=== PATIENT | female | born 1985 | race Caucasian/White ===

== ENCOUNTER 2022-12-24 11:38 | Observation (INO) | payer BC, SELFPAY ==
[2022-12-24] VITALS (57 sets, daily range): BP systolic 99–138; BP diastolic 61–115; PULSE 71–111; RESP 16–20; TEMP 36.1–36.5; O2SAT 94–100
--- NOTE | 2022-12-24 11:45 | RT.EKG_ITS ---
APPROVED REPORT Exam: Resting ECG Reason for Exam: upper abd pain Patient Location: E HR:87 bpm ECG Measurements Heart Rate 87 AXIS DC 157 P 58 QRSd 88 QRS 12 QT 363 T 24 QTc 438 Conclusion Sinus rhythm...normal P axis, V-rate 60- 99 Probable left atrial enlargement...P >50mS, <-0.10mV V1
--- NOTE | 2022-12-24 12:07 | ED.GENADUL_ITS ---
Discharge Plan Discharge Details Chief Complaint: Abd Prob Clinical Impression: Superior mesenteric vein thrombosis Primary Care Provider: None,None ED Provider: Rohan Fuentes Home Meds and New Rx's Prescriptions: No Action escitalopram oxalate [Lexapro] 10 mg Tablet 10 mg PO DAILY Medical Decision Making 1240?- 37-year-old female here with abdominal pain and nausea vomiting that started around 6 AM this morning. Patient is quite uncomfortable at this time. She has had fairly persistent vomiting and now dry heaving. Patient tender in her upper abdomen with no peritoneal findings. Patient is hemodynamically stable. Afebrile. Plan for Zofran IV and Pepcid IV. I will give IV fluid bolus. Plan to reassess. Consider biliary disease versus pancreatitis we will check labs. -- Labs reviewed and nondiagnostic. No leukocytosis. 1513 --CT abdomen pelvis was interpreted by radiology: Occlusion of the superior mesenteric vein noted. Plan to initiate anticoagulation with Lovenox 1 mg/kg subcutaneous. [place] [facility] [place] awaiting callback. CT imaging sent for review. HPI General Mode of arrival: ambulatory . Date/Time Provider Initiated Documentation: 12/24/22 11:48 . Limitations to Documentation: no limitations . Information obtained by: patient . HPI Narrative: 37-year-old female presents with chief complaint of abdominal pain. Patient notes she woke up around 6 AM with nausea and abdominal pain. She has had persistent vomiting and dry heaving since that time. Pain is localized to upper abdomen and severe. She has no associated hematemesis, melena or bright red blood per rectum. No chest pain. No fever. Patient denies abdominal surgery in the past. Related Data Home Medications Medication Instructions Recorded Confirmed escitalopram oxalate 10 mg tablet 10 mg PO DAILY 12/24/22 12/24/22 (Lexapro) Allergies Allergy/AdvReac Type Severity Reaction Status Date / Time No Known Allergies Allergy Unverified 12/24/22 16:03 General Stated Complaint: Abd Prob PHILLIP: 3 Review of Systems All systems reviewed & are unremarkable except as noted in HPI and below Constitutional Constitutional: Denies fever(s) Gastrointestinal Gastrointestinal: Reports as per HPI PFSH All Active Problems (Updated 12/24/22 @ 16:09 by Rohan Fuentes MD) Superior mesenteric vein thrombosis (Acute) Social History Smoking risk assessment performed?: No Alcohol Intake: current Alcohol Intake frequency: a few times a month Exam Const General: cooperative and uncomfortable Nutritional Appearance: well nourished Orientation: alert and awake HENWY Mouth: moist mucous membranes Eyes Conjunctivae: normal conjunctivae Sclera: normal sclerae Neck Neck: trachea midline and supple Resp Auscultation: clear to auscultation bilaterally, no rales, no rhonchi and no wheezes Cardio Rate: regular rate and not tachycardic Rhythm: regular rhythm GI Palpation: soft, not firm, no guarding, no masses, not rigid and tender in the epigastrum Skin General skin exam: no rashes or lesions noted Neuro General: patient alert, patient awake and tone normal Extrem General: no edema Course Vital Signs Vital signs: Vital Signs Temperature 36.5 C 12/24/22 11:43 Pulse 88 12/24/22 11:43 Respiratory Rate 20 12/24/22 11:43 Blood Pressure 109/75 12/24/22 11:43 Pulse Oximetry 98 12/24/22 11:43 Temperature 36.5 C 12/24/22 11:43 Temperature Source Oral 12/24/22 11:43 Pulse 88 12/24/22 11:43 Respiratory Rate 20 12/24/22 11:43 Respiratory Effort Normal 12/24/22 11:53 Blood Pressure 109/75 12/24/22 11:43 Blood Pressure Position Sitting 12/24/22 11:43 Pulse Oximetry 98 12/24/22 11:43 Oxygen Delivery Method Room Air 12/24/22 11:43 Oxygen Flow Rate 0 12/24/22 11:43 Pain Level 10 12/24/22 11:43 PAWSS Have you Been Recently Intoxicated or Drunk Within the Last 30 days?: No Have you Ever Experienced Previous Episodes of Alcohol Withdrawal?: No Have you ever Experienced Withdrawal Seizures?: No Have you ever Experienced Delirium Tremens(DT)s?: No Have you ever undergone Alcohol Rehabilitation Treatment (i.e, inpt ot outpatient treatment programs)?: No Have you ever Experienced Blackouts?: No Have you ever Combined Alcohol with other Downers within the last 90 days?: No Have you ever Combined Alcohol with any other Substance of Abuse during the last 90 days?: No Positive Blood Alcohol level on Presentation? [PCS.BAL]: No Evidence of Increased Autonomic Activity (i.e. HR>120, tremor, sweating, agitation, nausea)?: No Result: 0
[2022-12-24] MEDS: Famotidine 20 MG/2 ML VIAL IVP (12:15)
[2022-12-24] MEDS: Ondansetron 4 MG/2 ML VIAL IVP ×2 (12:15→15:49)
[2022-12-24] MEDS: Lactated Ringers 500 ML 1000 ML IV (12:15)
[2022-12-24 12:32] LABS: ALT 18 U/L (14-59); AST 16 U/L (15-37); Albumin 4.3 g/dL (3.4-5.0); Alkaline Phosphatase 69 U/L (46-116); Anion Gap 13.4 mmol/L (3-11); BUN 15 mg/dL (7-18); Bilirubin, Total 0.7 mg/dL (0.2-1.0); CO2 23.6 mmol/L (21.0-32.0); CREATININE 0.7 mg/dL (0.55-1.02); Chloride 102 mmol/L (98-107); Estimated GFR 113.46 (mL/min/1.73m2); Glucose 120 mg/dL (74-106); Lipase 16 U/L (16-77); Potassium 3.7 mmol/L (3.5-5.1); Sodium 139 mmol/L (136-145); Total Protein 7.9 g/dL (6.4-8.2)
[2022-12-24 12:38] LABS: Abs Immature Grans 0.03 10^3/uL (0.0-0.06); Absolute Basophil Count 0.02 10^3/uL (0.0-0.2); Absolute Lymphocyte Count 0.66 10^3/uL (1.2-3.4); Absolute Monocyte Count 0.13 10^3/uL (0.1-0.8); Absolute Neutrophil Count 9.04 10^3/uL (1.2-6.7); Basophils % 0.2; HCT 36.8 % (36.0-46.0); HGB 13.4 g/dL (11.2-15.7); Immature Grans % 0.3; Lymphocytes % 6.7; MCH 33.7 pg (27.0-33.0); MCHC 36.4 % (32.0-36.0); MCV 93 fL (80-95); MPV 9.5 fL (8.0-11.0); Monocytes % 1.3; Neutrophils % 91.5; Platelet Count 219 10^3/uL (130-400); RBC 3.98 10^6/uL (3.93-5.22); RDW 12.2 % (11.7-14.6); RDW-SD 41.9 fL; WBC 9.88 10^3/uL (4.4-10.8)
[2022-12-24] MEDS: HYDROmorphone 2 MG/ML SYR 1 MG IVP ×5 (12:44→22:53)
--- NOTE | 2022-12-24 13:45 | DI.CT_ITS ---
Exam(s) CT ABDOMEN PELVIS W EXAM: CT ABDOMEN PELVIS W CLINICAL HISTORY: abdominal pain, worse upper abd, n/v. TECHNIQUE: Imaging Protocol: Axial computed tomography images with coronal and sagittal reformatted images were created and reviewed CONTRAST MATERIAL: Intravenous: Omnipaque 350 Contrast volume:100 ml Oral: no COMPARISON: No exams were available for comparison FINDINGS: ABDOMEN: Lung Bases: Normal where visualized. Liver: Normal density. No measurable mass. Gallbladder and biliary tract: No radiodense calculus or dilation. Pancreas: Normal density, no abnormal calcifications or inflammatory process. Spleen: Normal. Kidneys: Normal size, contour and axis. No radiodense stones or obstructive uropathy. No suspicious m asses seen. Adrenal glands: No masses seen. Vasculature: Abdominal aorta non-dilated. Celiac axis, SMA and JODI are patent. There is partially occlusive thrombus seen in the main trunk of the superior mesenteric vein extendin g to the confluence with the portal vein. The portal vein appears patent. Splenic vein is patent. t here is a distal branch of the superior mesenteric vein which supplies the right lower quadrant mesen smita which appears occlusive. There is significant stranding in the adjacent mesentery. Soft tissues: Unremarkable. PELVIS: Bladder: No gross wall thickening. No calculi.No focal mass. Bowel: No obstruction. No bowel wall thickening. No pneumatosis. Appendix normal. Peritoneal cavity: No ascites or focal collection. Bones: Unremarkable for age. Reproductive organs: Within normal limits. Lymph nodes: Unremarkable. IMPRESSION:: Superior mesenteric vein thrombosis. No bowel thickening or pneumatosis. Significant right lower quadrant mesenteric stranding. Findings called to Dr. Rohan Fuentes of the emergency department. RADIATION DOSE DELIVERED: 957.38mGy.cm Total DLP DATA REPOSITORY: All CT scans at this facility are submitted to the National Radiology Data Registry (NRDR) Dose Index Registry (DIR) with the [employer] (ACR). RADIATION OPTIMIZATION: All CT scans at this facility use at least one of these dose optimization te chniques: automated exposure control; mA and/or kV adjustment per patient size (includes targeted exa ms where dose is matched to clinical indication); or iterative reconstruction.
[2022-12-24] MEDS: Omnipaque 350 MG/ML 100 ML BTL IJ (14:10)
[2022-12-24] MEDS: Normal Saline Flush 10 ML SYR IVP (14:10)
[2022-12-24] MEDS: Normal Saline - Diluent 50 ML VIAL IJ (14:10)
[2022-12-24 15:50] LABS: Lactate 1.5 mmol/L (0.6-1.4)
[2022-12-24] MEDS: Enoxaparin 80 MG/0.8 ML SYR 70 MG SC (15:58)
--- NOTE | 2022-12-24 16:26 | ED.PROG_ITS ---
Date of service: 12/24/22 Time of Service: 16:26 Medical Decision Making I received signout on this 37-year-old female found to have a mesenteric vein thrombus. She is pending a vascular consult. I spoke [place] Santiago [place] [facility] [place] He reported that the patient did not require tertiary care transfer nor stenting. He agreed with local hospitalization for hydration, serial abdominal exams, a clear liquid diet, and anticoagulation. He also reported that the patient would likely benefit from a GI consultation to elucidate the etiology of her superior mesenteric vein thrombosis. We will reach out to the hospitalist team. We will also touch base with general surgery in lieu of GI. 5:15 PM I spoke with Dr. Nelson from general surgery to make him aware of the patient. He agreed to see the patient tomorrow. I have redosed patient with 1 mg of hydromorphone. I spoke with hospitalist Dr. Coulter who agreed graciously to accept the patient for hospitalization. Sign Out Sign Out Data: Sign Out Comment: Follow-up on vascular surgery consult. Last updated by Rohan Fuentes MD at 12/24/22 16:11 Discharge Plan Discharge Details Chief Complaint: Abd Prob Clinical Impression: Superior mesenteric vein thrombosis Primary Care Provider: None,None ED Provider: Baljeet Hickey Allyn Meds and New Rx's Prescriptions: No Action escitalopram oxalate [Lexapro] 10 mg Tablet 10 mg PO DAILY
[2022-12-24 17:31] LABS: Source Nasal/Nares
[2022-12-24 17:58] LABS: COVID-19 PCR Negative (Negative)
--- NOTE | 2022-12-24 18:03 | NUR.NOTE ---
Nursing Note: Gave report to LANETTE Segura on med\surg. pt will go to room 229 when room is ready, but at this time RN states the room is still being cleaned.
--- NOTE | 2022-12-24 18:26 | SCONE_ITS ---
Date of service: 12/24/22 Time of Service: 18:27 Assessment and Plan Assessment and plan (1) Superior mesenteric vein thrombosis: Status: Acute Assessment and plan: This all seems most consistent with acute superior mesenteric vein thrombosis. Although the etiology of that is not quite clear. I think therapeutic anticoagulation is the appropriate treatment. Symptoms seem mildly improved. She is a little bit of appetite, and her hemodynamics are all certainly reassuring. If she has any increase in her abdominal pain, or intolerance of food, then I would switch over to unfractionated heparin in the case that it would need to be held for the operating room. However, based on the current tr ajectory, I think that is unlikely. History of Present Illness History of Present Illness Chief Complaint: Abdominal pain with superior mesenteric vein thrombosis Narrative: Laura is 37 years old. She woke yesterday morning with atypical abdominal pain. She described it as sharp, stabbing, and radiating throughout her abdomen. She had some mild associated nausea. She tried to induce emesis to relieve her symptoms, but it did not help. She thought it may have been food poisoning at that point. After several hours, with the pain increasing, she decided to come to the emergency department for evaluation. While in the ER, her vital signs were reassuring. She had a very mildly elevated serum lactate at 1.5. Otherwise, most of her labs were within normal limits. She had no leukocytosis. It seems like she was in quite a bit of pain at that point. She had a fair amount of abdominal tenderness as well. She was resuscitated with intravenous fluids, and underwent a CAT scan of the abdomen and pelvis that demonstrated superior mesenteric vein thrombosis. She was treated with low molecular weight heparin and admitted to the hospital. Review of Systems Constitutional Constitutional: Denies body ache(s), Denies difficulty sleeping, Denies fever(s) and Reports poor appetite Eyes Eyes: Reports system reviewed and no additional complaints, except as documented ENT Ears, Nose, Mouth, and Throat: Reports system reviewed and no additional complaints, except as documented Cardiovascular Cardiovascular: Denies chest pain and Denies dyspnea Respiratory Respiratory: Denies chest congestion, Denies cough and Denies dyspnea Gastrointestinal Gastrointestinal: Reports abdominal pain, Denies belching, Denies bloating, Denies change in bowel habits, Reports cramping, Denies diarrhea, Reports nausea and Denies vomiting Genitourinary Genitourinary: Reports system reviewed and no additional complaints, except as documented Musculoskeletal Musculoskeletal: Reports system reviewed and no additional complaints, except as documented Neurologic Neurologic: Reports system reviewed and no additional complaints, except as documented Psychiatric Psychiatric: Reports system reviewed and no additional complaints, except as documented Hematologic/Lymphatic Hematologic/Lymphatic: Denies easy bleeding and Denies easy bruising PFSH All Active Problems (Updated 12/24/22 @ 20:44 by Tran Coulter MD) Dehydration (Acute) Anxiety disorder (Chronic) Nausea & vomiting (Acute) Discharge planning issues (Acute) Tobacco abuse (Acute) Superior mesenteric vein thrombosis (Acute) Medical History (Updated 12/24/22 @ 20:44 by Tran Coulter MD) Panic attacks Surgical History (Updated 12/24/22 @ 20:43 by Tran Coulter MD) Family History (Updated 12/24/22 @ 20:43 by Tran Coulter MD) Maternal Grandmother Diabetes Social History Smoking/Tobacco Use Status: Current-Occasional Smoking risk assessment performed?: Yes Alcohol Intake: current Alcohol Intake frequency: a few times a month Housing: apartment Exam Const General: cooperative and comfortable Orientation: alert, awake and oriented x3 HENMT Head: normal to inspection Eyes General: appearance normal, both eyes and all related structures Neck Neck: normal visual inspection, full ROM and no lymphadenopathy Thyroid: thyroid normal GI Inspection: normal to inspection Palpation: soft, no hernias and tender Percussion: normal to percussion Auscultation: normal bowel sounds Neuro General: patient alert, patient awake and patient oriented x3 Extrem Right lower extremity: no edema Left lower extremity: no edema Results Last Vital Signs Temp 97.7 F 12/24/22 11:43 Pulse 79 12/24/22 17:45 Resp 20 12/24/22 11:43 BP 118/80 12/24/22 17:45 Pulse Ox 96 12/24/22 17:45 Labs 12/24/22 12:10 12/24/22 12:10 Labs: Laboratory Results - last 24 hr 12/24/22 12/24/22 12/24/22 12:10 12:10 12:10 WBC 9.88 RBC 3.98 Hgb 13.4 Hct 36.8 MCV 93 MCH 33.7 H MCHC 36.4 H RDW 12.2 Plt Count 219 MPV 9.5 Immature Gran % 0.3 Neutrophils % 91.5 Lymphocytes % 6.7 Monocytes % 1.3 Eosinophils % 0.0 Basophils % 0.2 Nucleated RBC % 0.0 Absolute Neutrophils 9.04 H Absolute Lymphocytes 0.66 L Absolute Monocytes 0.13 Absolute Eosinophils 0.00 Absolute Basophils 0.02 VBG Lactate Sodium 139 Potassium 3.7 Chloride 102 Carbon Dioxide 23.6 Anion Gap 13.4 H BUN 15 Creatinine 0.7 Est GFR (CKD-EPI 2020) 113.46 Glucose 120 H Calcium 9.0 Total Bilirubin 0.7 AST 16 ALT 18 Alkaline Phosphatase 69 Total Protein 7.9 Albumin 4.3 Lipase Cancelled 16 COVID-19 Source SARS-CoV-2 (PCR) 12/24/22 12/24/22 15:44 17:25 WBC RBC Hgb Hct MCV MCH MCHC RDW Plt Count MPV Immature Gran % Neutrophils % Lymphocytes % Monocytes % Eosinophils % Basophils % Nucleated RBC % Absolute Neutrophils Absolute Lymphocytes Absolute Monocytes Absolute Eosinophils Absolute Basophils VBG Lactate 1.5 H Sodium Potassium Chloride Carbon Dioxide Anion Gap BUN Creatinine Est GFR (CKD-EPI 2020) Glucose Calcium Total Bilirubin AST ALT Alkaline Phosphatase Total Protein Albumin Lipase COVID-19 Source Nasal/Nares SARS-CoV-2 (PCR) Negative Imaging Abdomen CT scan report/results: report reviewed and image reviewed CT scan - pelvis: report reviewed and image reviewed
--- NOTE | 2022-12-24 18:55 | W.PM.HP.N ---
Date of service: 12/24/22 Time of Service: 18:56 Assessment and Plan Assessment and plan (1) Superior mesenteric vein thrombosis: Status: Acute Assessment and plan: Continue anticoagulation. Will discuss with GI re any possible further workup. May require heme follow up. (2) Nausea & vomiting: Status: Acute Assessment and plan: Trial a clear liquid diet (3) Dehydration: Status: Acute Assessment and plan: IVF (4) Anxiety disorder: Status: Chronic Assessment and plan: Continue home diazepam and lexapro. I have written for prn narcan given the fact that the patient will be on IV dilaudid concurrently (5) Tobacco abuse: Status: Acute Assessment and plan: Encourage cessation (6) Discharge planning issues: Status: Acute Assessment and plan: Full code History of Present Illness History of Present Illness Chief Complaint: Abdominal pain/n/v Narrative: Ms Quach is a 37 year old female with PMHx of anxiety d/o w/ panic attacks and occasional tobacco use, who presented to [facility] ED today c/o bilateral upper quandrant abdominal pain and billious n/v since waking up this morning. The pain is excruciating. The symptoms did not respond to pepcid and zofran. CT abdomen/pelvis was obtained and revealed superior mesenteric vein thrombosis with significant right lower quadrant mesenteric stranding. The patient denies knowing if anyone on her mother's side has a hx of blood clots. She does not use control. She had COVID in 2020 but not recently. Case was discussed with [facility] vascular surgery, who recommended anticoagulation, IV hydration, pain control, and a clear liquid diet. No operative intervention was recommended. General surgery was consulted, and a hospitalist admission was requested. Review of Systems All systems reviewed & are unremarkable except as noted in HPI and below PFSH All Active Problems (Updated 12/24/22 @ 20:44 by Tran Coulter MD) Dehydration (Acute) Anxiety disorder (Chronic) Nausea & vomiting (Acute) Discharge planning issues (Acute) Tobacco abuse (Acute) Superior mesenteric vein thrombosis (Acute) Medical History (Updated 12/24/22 @ 20:44 by Tran Coulter MD) Panic attacks Surgical History (Updated 12/24/22 @ 20:43 by Tran Coulter MD) Family History (Updated 12/24/22 @ 20:43 by Tran Coulter MD) Maternal Grandmother Diabetes Social History Smoking/Tobacco Use Status: Current-Occasional Smoking risk assessment performed?: Yes Alcohol Intake: current Alcohol Intake frequency: a few times a month Housing: apartment Meds Allergies and Home Medications Allergies Allergy/AdvReac Type Severity Reaction Status Date / Time No Known Allergies Allergy Unverified 12/24/22 16:03 Home Medications Medication Instructions Recorded Confirmed Type diazepam 5 mg tablet 2.5 mg PO HS PRN PRN 12/24/22 12/24/22 History escitalopram oxalate 10 mg tablet 10 mg PO DAILY 12/24/22 12/24/22 History (Lexapro) multivitamin 1 tab PO DAILY 12/24/22 12/24/22 History Exam Narrative Exam Narrative: General: Pleasant female who is laying on her left side, appears uncomfortable, A&Ox3 Neurological: A&ox3, no focal deficits Psychiatric: Appropriate speech pattern/content Skin: Visible skin intact HEENT: Atraumatic, normocephalic, EOMI, dry MM, clear oropharynx, no submandibular or cervical lymphadenopathy, no goiter or JVD Cardiovascular: RRR, no m/r/g, mildly tachycardic Lungs: CTAB Gastrointestinal: soft, diffusely tender, but especially so in the upper abdomen Genitourinary: deferred Extremities: no edema BLEs, 2+ pedal pulses B Results Imaging Additional studies: CT abdomen/pelvis: ?Superior mesenteric vein thrombosis.? No bowel thickening or pneumatosis.? Significant right lower quadrant mesenteric stranding. EKG: HR 87, NSR, ST/T wave flattening in lead 3, otherwise, no acute ischemia. Labs 12/24/22 12:10 12/24/22 12:10 Labs: Laboratory Results - last 24 hr 12/24/22 12/24/22 12/24/22 12:10 12:10 12:10 WBC 9.88 RBC 3.98 Hgb 13.4 Hct 36.8 MCV 93 MCH 33.7 H MCHC 36.4 H RDW 12.2 Plt Count 219 MPV 9.5 Immature Gran % 0.3 Neutrophils % 91.5 Lymphocytes % 6.7 Monocytes % 1.3 Eosinophils % 0.0 Basophils % 0.2 Nucleated RBC % 0.0 Absolute Neutrophils 9.04 H Absolute Lymphocytes 0.66 L Absolute Monocytes 0.13 Absolute Eosinophils 0.00 Absolute Basophils 0.02 VBG Lactate Sodium 139 Potassium 3.7 Chloride 102 Carbon Dioxide 23.6 Anion Gap 13.4 H BUN 15 Creatinine 0.7 Est GFR (CKD-EPI 2020) 113.46 Glucose 120 H Calcium 9.0 Total Bilirubin 0.7 AST 16 ALT 18 Alkaline Phosphatase 69 Total Protein 7.9 Albumin 4.3 Lipase Cancelled 16 COVID-19 Source SARS-CoV-2 (PCR) 12/24/22 12/24/22 15:44 17:25 WBC RBC Hgb Hct MCV MCH MCHC RDW Plt Count MPV Immature Gran % Neutrophils % Lymphocytes % Monocytes % Eosinophils % Basophils % Nucleated RBC % Absolute Neutrophils Absolute Lymphocytes Absolute Monocytes Absolute Eosinophils Absolute Basophils VBG Lactate 1.5 H Sodium Potassium Chloride Carbon Dioxide Anion Gap BUN Creatinine Est GFR (CKD-EPI 2020) Glucose Calcium Total Bilirubin AST ALT Alkaline Phosphatase Total Protein Albumin Lipase COVID-19 Source Nasal/Nares SARS-CoV-2 (PCR) Negative Last Vital Signs Temp 36.5 C 12/24/22 11:43 Pulse 79 12/24/22 17:45 Resp 20 12/24/22 11:43 BP 118/80 12/24/22 17:45 Pulse Ox 96 12/24/22 17:45 PAWSS Have you Been Recently Intoxicated or Drunk Within the Last 30 days?: No Have you Ever Experienced Previous Episodes of Alcohol Withdrawal?: No Have you ever Experienced Withdrawal Seizures?: No Have you ever Experienced Delirium Tremens(DT)s?: No Have you ever undergone Alcohol Rehabilitation Treatment (i.e, inpt ot outpatient treatment programs)?: No Have you ever Experienced Blackouts?: No Have you ever Combined Alcohol with other Downers within the last 90 days?: No Have you ever Combined Alcohol with any other Substance of Abuse during the last 90 days?: No Positive Blood Alcohol level on Presentation? [PCS.BAL]: No Evidence of Increased Autonomic Activity (i.e. HR>120, tremor, sweating, agitation, nausea)?: No Result: 0 Time Spent Time spent with Patient: 55-74 minutes Time was spent: preparing to see the patient(eg.review tests), obtaining and[facility]or [facility], ordering medications,tests, procedures, referring, communicating with other health managed care nurse, indepentently interpreting results, counseling the patient and care coordination
[2022-12-24] MEDS: Lactated Ringers 1,000 ML 125 ML IV ×2 (19:20→21:45)
[2022-12-24] MEDS: Acetaminophen 325 MG TAB PO (19:47)
[2022-12-25] VITALS (11 sets, daily range): BP systolic 96–119; BP diastolic 60–81; PULSE 65–89; RESP 12–20; TEMP 36.4–37.2; O2SAT 96–100
[2022-12-25] MEDS: HYDROmorphone 2 MG/ML SYR 1 MG IVP ×6 (04:00→23:09)
[2022-12-25] MEDS: Acetaminophen 325 MG TAB PO ×3 (04:13→21:48)
[2022-12-25] MEDS: Enoxaparin 80 MG/0.8 ML SYR 70 MG SC (05:16)
[2022-12-25] MEDS: Lactated Ringers 1,000 ML 125 ML IV ×3 (05:23→20:35)
[2022-12-25 07:05] LABS: Abs Immature Grans 0.03 10^3/uL (0.0-0.06); Absolute Basophil Count 0.02 10^3/uL (0.0-0.2); Absolute Eosinophil Count 0.01 10^3/uL (0.0-0.7); Absolute Lymphocyte Count 1.37 10^3/uL (1.2-3.4); Absolute Monocyte Count 0.58 10^3/uL (0.1-0.8); Absolute Neutrophil Count 8.44 10^3/uL (1.2-6.7); Basophils % 0.2; Eosinophils % 0.1; HCT 34.1 % (36.0-46.0); HGB 12.3 g/dL (11.2-15.7); Immature Grans % 0.3; Lymphocytes % 13.1; MCHC 36.1 % (32.0-36.0); MCV 94 fL (80-95); MPV 9.6 fL (8.0-11.0); Monocytes % 5.6; Neutrophils % 80.7; Platelet Count 190 10^3/uL (130-400); RBC 3.62 10^6/uL (3.93-5.22); RDW 12.3 % (11.7-14.6); RDW-SD 42.8 fL; WBC 10.45 10^3/uL (4.4-10.8)
[2022-12-25 07:30] LABS: Anion Gap 7.5 mmol/L (3-11); BUN 9 mg/dL (7-18); CO2 28.5 mmol/L (21.0-32.0); CREATININE 0.7 mg/dL (0.55-1.02); Calcium 8.5 mg/dL (8.5-10.1); Chloride 103 mmol/L (98-107); Estimated GFR 113.46 (mL/min/1.73m2); Glucose 82 mg/dL (74-106); Magnesium 1.9 mg/dL (1.8-2.4); Potassium 3.1 mmol/L (3.5-5.1); Sodium 139 mmol/L (136-145)
[2022-12-25] MEDS: Escitalopram 10 MG TAB PO (07:50)
[2022-12-25] MEDS: Multivitamin TAB 1 TAB PO (07:50)
[2022-12-25 08:46] LABS: Lactate 0.6 mmol/L (0.6-1.4)
[2022-12-25] MEDS: POTASSIUM CHLORIDE 20 MEQ/100 ML BAG 50 MEQ IVPB ×3 (09:29→14:31)
--- NOTE | 2022-12-25 15:01 | PDOC.CMIN ---
Date of service: 12/25/22 Time of Service: 15:01 Care Management Initial Assmt Initial Assessment REASON FOR HOSPITALIZATION:: Superior mesenteric vein thrombosis PREVIOUS FUNCTIONAL STATUS/SOCIAL/FAMILY SUPPORTS:: Resides in [place] with significant other, B[place]io. Independent at baseline in the community. CURRENT FUNCTIONAL STATUS:: Remains inpatient, pain management ongoing; workup today. ADVANCE DIRECTIVES:: None on file. Has patient been provided with info about the portal/API?: No Did the patient sign up for the portal?: No CODE STATUS:: Full Code INSURANCE COVERAGE / FINANCIAL ISSUES:: BC/BS Out of State PRIMARY CARE PHYSICIAN:: T-Doc to be offered POTENTIAL DISCHARGE NEEDS:: T-doc coordination if patient wishes, follow up appointments. PATIENT/FAMILY EDUCATION NEEDS:: Review discharge instructions, discuss Ask Me Three. ANTICIPATED BARRIERS TO DISCHARGE:: None identified. TRANSPORTATION:: Via private vehicle with significant other. PLAN:: Case was discussed [place] [facility] [place], who recommended anticoagulation, IV hydration, pain control, and a clear liquid diet. No operative intervention was recommended. General surgery was consulted, and a hospitalist admission was requested. PFSH All Active Problems (Updated 12/25/22 @ 20:47 by Tran Coulter MD) Dehydration (Acute) Anxiety disorder (Chronic) Discharge planning issues (Acute) Tobacco abuse (Acute) Superior mesenteric vein thrombosis (Acute) Medical History (Updated 12/25/22 @ 20:47 by Tran Coulter MD) Panic attacks Surgical History (Updated 12/24/22 @ 20:43 by Tran Coulter MD) Family History (Updated 12/24/22 @ 20:43 by Tran Coulter MD) Maternal Grandmother Diabetes Social History Smoking/Tobacco Use Status: Current-Occasional Smoking risk assessment performed?: Yes Alcohol Intake: current Alcohol Intake frequency: a few times a month Housing: apartment
[2022-12-25] MEDS: Enoxaparin 80 MG/0.8 ML SYR SC (17:04)
[2022-12-25] MEDS: Normal Saline Flush 10 ML SYR IVP (17:58)
--- NOTE | 2022-12-25 19:53 | W.PM.PROGNOT ---
Date of Service Date of service: 12/25/22 Time of Service: 16:30 Assessment and Plan Assessment and plan (1) Tobacco abuse: Status: Acute (2) Superior mesenteric vein thrombosis: Status: Acute Assessment and plan: Pain improving on anti-coagulants. (lovenox). . Probably transition to DOACs in am cont pain management Miralax Heme work-up for hyper-coag d/o. d/w Dr. Coulter Subjective Subjective Interval history since last seen: Pt is doing better. no headaches. No CP or SOB. no productive cough. no dysuria. no leg pain or swelling. Her pain is better today. She is still requiring narcotics to control it. She is tolerating liquids. She feels better seince she was started on blood thinners. She is not on hormonal BC. No family his of blood clots/thrombophillia. She denies trauma. No signs of malignancy on CT. No cirrhosis/portal HTN. Exam Const Other: abdom: RUQ tenderness. No peritonitis. Objective Last Vital Signs Temp 37.1 C 12/25/22 19:39 Pulse 65 12/25/22 19:39 Resp 16 12/25/22 19:39 BP 110/77 12/25/22 19:39 Pulse Ox 100 12/25/22 19:39 Laboratory Results - last 24 hr 12/25/22 12/25/22 12/25/22 06:39 06:39 08:36 WBC 10.45 RBC 3.62 L Hgb 12.3 Hct 34.1 L MCV 94 MCH 34.0 H MCHC 36.1 H RDW 12.3 Plt Count 190 MPV 9.6 Immature Gran % 0.3 Neutrophils % 80.7 Lymphocytes % 13.1 Monocytes % 5.6 Eosinophils % 0.1 Basophils % 0.2 Nucleated RBC % 0.0 Absolute Neutrophils 8.44 H Absolute Lymphocytes 1.37 Absolute Monocytes 0.58 Absolute Eosinophils 0.01 Absolute Basophils 0.02 VBG Lactate 0.6 Sodium 139 Potassium 3.1 L Chloride 103 Carbon Dioxide 28.5 Anion Gap 7.5 BUN 9 Creatinine 0.7 Est GFR (CKD-EPI 2020) 113.46 Glucose 82 Calcium 8.5 Magnesium 1.9 PAWSS Have you Been Recently Intoxicated or Drunk Within the Last 30 days?: No Have you Ever Experienced Previous Episodes of Alcohol Withdrawal?: No Have you ever Experienced Withdrawal Seizures?: No Have you ever Experienced Delirium Tremens(DT)s?: No Have you ever undergone Alcohol Rehabilitation Treatment (i.e, inpt ot outpatient treatment programs)?: No Have you ever Experienced Blackouts?: No Have you ever Combined Alcohol with other Downers within the last 90 days?: No Have you ever Combined Alcohol with any other Substance of Abuse during the last 90 days?: No Positive Blood Alcohol level on Presentation? [PCS.BAL]: No Evidence of Increased Autonomic Activity (i.e. HR>120, tremor, sweating, agitation, nausea)?: No Result: 0 CBC White Blood Count 10.45 10^3/uL (4.4-10.8) 12/25/22 Red Blood Count 3.62 10^6/uL (3.93-5.22) L 12/25/22 Hemoglobin 12.3 g/dL (11.2-15.7) 12/25/22 Hematocrit 34.1 % (36.0-46.0) L 12/25/22 Mean Corpuscular Volume 94 fL (80-95) 12/25/22 Mean Corpuscular Hemoglobin 34.0 pg (27.0-33.0) H 12/25/22 Mean Corpuscular Hemoglobin Concent 36.1 % (32.0-36.0) H 12/25/22 Red Cell Distribution Width 12.3 % (11.7-14.6) 12/25/22 Platelet Count 190 10^3/uL (130-400) 12/25/22 Mean Platelet Volume 9.6 fL (8.0-11.0) 12/25/22 Neutrophils % 80.7 12/25/22 Lymphocytes % 13.1 12/25/22 Monocytes % 5.6 12/25/22 Eosinophils % 0.1 12/25/22 Basophils % 0.2 12/25/22 Immature Granulocytes % 0.3 12/25/22 Comprehensive Metabolic Panel Sodium 139 mmol/L (136-145) 12/25/22 06:39 Potassium 3.1 mmol/L (3.5-5.1) L 12/25/22 06:39 Chloride 103 mmol/L (98-107) 12/25/22 06:39 Carbon Dioxide 28.5 mmol/L (21.0-32.0) 12/25/22 06:39 BUN 9 mg/dL (7-18) 12/25/22 06:39 Creatinine 0.7 mg/dL (0.55-1.02) 12/25/22 06:39 Glucose 82 mg/dL (74-106) 12/25/22 06:39 Calcium 8.5 mg/dL (8.5-10.1) 12/25/22 06:39 Total Bilirubin 0.7 mg/dL (0.2-1.0) 12/24/22 12:10 ALT 18 U/L (14-59) 12/24/22 12:10 AST 16 U/L (15-37) 12/24/22 12:10 Alkaline Phosphatase 69 U/L (46-116) 12/24/22 12:10 Total Protein 7.9 g/dL (6.4-8.2) 12/24/22 12:10 Albumin 4.3 g/dL (3.4-5.0) 12/24/22 12:10 Time Spent with Patient Time Spent with Patient: 25-34 minutes Time was spent: preparing to see the patient(eg.review tests), obtaining and/or reviewing separately otained hiistory, ordering medications,tests, procedures, referring, communicating with other health infant childcare provider, indepentently interpreting results, counseling the patient and care coordination
--- NOTE | 2022-12-25 20:42 | W.PM.PROGNOT ---
Date of Service Date of service: 12/25/22 Time of Service: 20:43 Assessment and Plan Assessment and plan (1) Superior mesenteric vein thrombosis: Status: Acute Assessment and plan: Continue anticoagulation with SC enoxaparin tonight. Will verify insurance coverage for eliquis tomorrow. Will need outpatiet heme, GI, vascular follow up. Will need outpatient hypercoagulable and malignancy workups. Pain control still requiring IV dialudid. (2) Nausea & vomiting: Status: Resolved Assessment and plan: Monitor with advanced diet (3) Dehydration: Status: Acute Assessment and plan: Continue IVF (4) Anxiety disorder: Status: Chronic Assessment and plan: Continue home diazepam and lexapro. I have written for prn narcan given the fact that the patient will be on IV dilaudid concurrently (5) Tobacco abuse: Status: Acute Assessment and plan: Encourage cessation (6) Discharge planning issues: Status: Acute Assessment and plan: Full code Possible discharge home in 24-48 hrs. Subjective Subjective Interval history since last seen: Feels better today. Is able to lay on her back which she was not able to do yesterday. The pain is more epigastric today and there is a little bit in RLQ. Denies personal or family hx of miscarriages or autoimmune conditions, though she still has not spoken with her mother. Export a little dizzy when getting up to the bathroom, but not dizzy now. Denies CP, SOB, nausea. Tolerated a clear liquid diet. Case was discussed with general surgery: ok to advance diet. Case was discussed with [facility] GI: recommended hematology consult, anticoagulation, hypercoagulable and malignancy workups. Case was discussed with [facility] heme: recommend follow up with outpatient thrombophilia clinic as well as outpatient malignancy workup. Apixaban on discharge would be ok. Duration of therapy would be at least 6 months. I discussed all of the above with the patient. Exam Narrative Exam Narrative: General: Pleasant female who is laying on her back, looks more comfortable today, A&Ox3 HEENT: EOMI, MMM Cardiovascular: RRR, no m/r/g Lungs: CTAB Gastrointestinal: soft, tender in epigastrium and RLQ Extremities: no edema BLEs, 2+ pedal pulses B Objective Last Vital Signs Temp 37.1 C 12/25/22 19:39 Pulse 65 12/25/22 19:39 Resp 16 08/31/23 19:39 BP 110/77 12/25/22 19:39 Pulse Ox 100 12/25/22 19:39 Laboratory Results - last 24 hr 12/25/22 12/25/22 12/25/22 06:39 06:39 08:36 WBC 10.45 RBC 3.62 L Hgb 12.3 Hct 34.1 L MCV 94 MCH 34.0 H MCHC 36.1 H RDW 12.3 Plt Count 190 MPV 9.6 Immature Gran % 0.3 Neutrophils % 80.7 Lymphocytes % 13.1 Monocytes % 5.6 Eosinophils % 0.1 Basophils % 0.2 Nucleated RBC % 0.0 Absolute Neutrophils 8.44 H Absolute Lymphocytes 1.37 Absolute Monocytes 0.58 Absolute Eosinophils 0.01 Absolute Basophils 0.02 VBG Lactate 0.6 Sodium 139 Potassium 3.1 L Chloride 103 Carbon Dioxide 28.5 Anion Gap 7.5 BUN 9 Creatinine 0.7 Est GFR (CKD-EPI 2020) 113.46 Glucose 82 Calcium 8.5 Magnesium 1.9 PAWSS Have you Been Recently Intoxicated or Drunk Within the Last 30 days?: No Have you Ever Experienced Previous Episodes of Alcohol Withdrawal?: No Have you ever Experienced Withdrawal Seizures?: No Have you ever Experienced Delirium Tremens(DT)s?: No Have you ever undergone Alcohol Rehabilitation Treatment (i.e, inpt ot outpatient treatment programs)?: No Have you ever Experienced Blackouts?: No Have you ever Combined Alcohol with other Downers within the last 90 days?: No Have you ever Combined Alcohol with any other Substance of Abuse during the last 90 days?: No Positive Blood Alcohol level on Presentation? [PCS.BAL]: No Evidence of Increased Autonomic Activity (i.e. HR>120, tremor, sweating, agitation, nausea)?: No Result: 0 Time Spent with Patient Time Spent with Patient: 35-49 minutes Time was spent: preparing to see the patient(eg.review tests), obtaining and/or reviewing separately otained hiistory, ordering medications,tests, procedures, referring, communicating with other health child care attendant, indepentently interpreting results, counseling the patient and care coordination
[2022-12-26] MEDS: Enoxaparin 80 MG/0.8 ML SYR SC (06:18)
[2022-12-26] MEDS: Acetaminophen 325 MG TAB PO ×2 (06:18→16:33)
[2022-12-26] MEDS: HYDROmorphone 2 MG/ML SYR 1 MG IVP (06:19)
[2022-12-26 07:00] VITALS: PULSE 69
[2022-12-26 07:05] LABS: Abs Immature Grans 0.02 10^3/uL (0.0-0.06); Absolute Basophil Count 0.02 10^3/uL (0.0-0.2); Absolute Eosinophil Count 0.02 10^3/uL (0.0-0.7); Absolute Lymphocyte Count 1.51 10^3/uL (1.2-3.4); Absolute Neutrophil Count 3.13 10^3/uL (1.2-6.7); Basophils % 0.4; Eosinophils % 0.4; HCT 34.2 % (36.0-46.0); HGB 11.8 g/dL (11.2-15.7); Immature Grans % 0.4; Lymphocytes % 29.6; MCH 33.2 pg (27.0-33.0); MCHC 34.5 % (32.0-36.0); MCV 96 fL (80-95); MPV 9.4 fL (8.0-11.0); Monocytes % 7.8; Neutrophils % 61.4; Platelet Count 175 10^3/uL (130-400); RBC 3.55 10^6/uL (3.93-5.22); RDW 12.5 % (11.7-14.6); RDW-SD 44.3 fL
[2022-12-26 07:15] LABS: Anion Gap 6.6 mmol/L (3-11); BUN 5 mg/dL (7-18); CO2 29.4 mmol/L (21.0-32.0); CREATININE 0.7 mg/dL (0.55-1.02); Calcium 8.5 mg/dL (8.5-10.1); Chloride 104 mmol/L (98-107); Estimated GFR 113.46 (mL/min/1.73m2); Glucose 100 mg/dL (74-106); Potassium 3.3 mmol/L (3.5-5.1); Sodium 140 mmol/L (136-145)
[2022-12-26] MEDS: Polyethylene Glycol 3350 17 GM PACKET PO (07:38)
[2022-12-26] MEDS: Escitalopram 10 MG TAB PO (07:38)
[2022-12-26] MEDS: Docusate Sodium 100 MG CAP PO (07:39)
[2022-12-26 07:54] VITALS: BP 109/75; PULSE 75; RESP 14; TEMP 37.3; O2SAT 96
[2022-12-26] MEDS: oxyCODONE 5 MG TAB PO (09:55)
--- NOTE | 2022-12-26 10:03 | W.PM.PROGNOT ---
Date of Service Date of service: 12/26/22 Time of Service: 10:04 Assessment and Plan Assessment and plan (1) Superior mesenteric vein thrombosis: Status: Acute Assessment and plan: Based on the trajectory of her abdominal symptoms, and the overall improvement, combined with her biochemistries, I think it is extremely unlikely that she would need any kind of surgical intervention at this point. I think it is probably reasonable to switch over to an enteral anticoagulant assuming there are no other contraindications. I do agree that a CAT scan of the head and probably a safe plan given the new headache on therapeutic anticoagulation. For now, we will sign off. Please give me a call at any point if there are any questions. Subjective Subjective Interval history since last seen: Feels better today. Although she still has some mild discomfort with movement. It is improved significantly compared to her previous pain. She was able to tolerate some chicken salad for dinner last night. She does have a new headache this morning. Objective Last Vital Signs Temp 99.1 F 12/26/22 07:54 Pulse 75 12/26/22 07:54 Resp 14 12/26/22 07:54 BP 109/75 12/26/22 07:54 Pulse Ox 96 12/26/22 07:54 Laboratory Results - last 24 hr 12/26/22 12/26/22 06:50 06:50 WBC 5.10 RBC 3.55 L Hgb 11.8 Hct 34.2 L MCV 96 H MCH 33.2 H MCHC 34.5 RDW 12.5 Plt Count 175 MPV 9.4 Immature Gran % 0.4 Neutrophils % 61.4 Lymphocytes % 29.6 Monocytes % 7.8 Eosinophils % 0.4 Basophils % 0.4 Nucleated RBC % 0.0 Absolute Neutrophils 3.13 Absolute Lymphocytes 1.51 Absolute Monocytes 0.40 Absolute Eosinophils 0.02 Absolute Basophils 0.02 Sodium 140 Potassium 3.3 L Chloride 104 Carbon Dioxide 29.4 Anion Gap 6.6 BUN 5 L Creatinine 0.7 Est GFR (CKD-EPI 2020) 113.46 Glucose 100 Calcium 8.5 Magnesium 2.0 PAWSS Have you Been Recently Intoxicated or Drunk Within the Last 30 days?: No Have you Ever Experienced Previous Episodes of Alcohol Withdrawal?: No Have you ever Experienced Withdrawal Seizures?: No Have you ever Experienced Delirium Tremens(DT)s?: No Have you ever undergone Alcohol Rehabilitation Treatment (i.e, inpt ot outpatient treatment programs)?: No Have you ever Experienced Blackouts?: No Have you ever Combined Alcohol with other Downers within the last 90 days?: No Have you ever Combined Alcohol with any other Substance of Abuse during the last 90 days?: No Positive Blood Alcohol level on Presentation? [PCS.BAL]: No Evidence of Increased Autonomic Activity (i.e. HR>120, tremor, sweating, agitation, nausea)?: No Result: 0 Time Spent with Patient Time Spent with Patient: <25 minutes Time was spent: preparing to see the patient(eg.review tests) and counseling the patient
--- NOTE | 2022-12-26 10:56 | DI.CT_ITS ---
Exam(s) CT HEAD WO EXAM: CT HEAD WO CLINICAL HISTORY: headache on anticoagulation. TECHNIQUE: Imaging Protocol: Axial computed tomography images with coronal and sagittal reformatted images were created and reviewed COMPARISON: No exams were available for comparison FINDINGS: Ventricles and Extra axial spaces: Normal in size and morphology for the patient's age. Hemorrhage: None. Cerebral parenchyma: No evidence of acute infarct or mass. Midline shift: None. Brainstem/Cerebellum: Normal. Calvarium: Normal. Visualized Paranasal sinuses/Mastoids: Clear. Soft Tissues: Unremarkable. IMPRESSION: No acute intracranial process. RADIATION DOSE DELIVERED: 694.67mGy.cm Total DLP DATA REPOSITORY: All CT scans at this facility are submitted to the National Radiology Data Registry (NRDR) Dose Index Registry (DIR) with the [employer] (A[employer]). RADIATION OPTIMIZATION: All CT scans at this facility use at least one of these dose optimization te chniques: automated exposure control; mA and/or kV adjustment per patient size (includes targeted exa ms where dose is matched to clinical indication); or iterative reconstruction.
[2022-12-26] MEDS: Potassium Chloride 20 MEQ TABCR 40 MEQ PO (10:58)
[2022-12-26 11:28] VITALS: BP 106/72; PULSE 69; RESP 14; TEMP 37.1; O2SAT 98
[2022-12-26] MEDS: diazePAM 5 MG TAB 2.5 MG PO (14:43)
[2022-12-26 15:00] VITALS: PULSE 69
[2022-12-26 15:37] VITALS: BP 108/78; PULSE 77; RESP 16; TEMP 37.6; O2SAT 100
--- NOTE | 2022-12-26 16:20 | PDOC.CMDIS ---
Date of service: 12/26/22 Time of Service: 16:20 LACE Index Scoring Tool Questions: Length of Stay (in days): 2 Was the patient admitted via the E.D.?: Yes E.D. Visits: 0 Answers: Total Score: 5 Risk of Readmission: Low Risk Care Management Discharge Plan Reason for Hospitalization: Superior mesenteric vein thrombosis Discharge Plan: Laura will return home with a new prescription for Eliquis; CM faxed over coupon and updated patient pharmacy to [facility]. Patient/Family Education Needs: Review discharge instructions, discuss Ask Me Three.
--- NOTE | 2022-12-26 16:33 | W.PM.DS.N ---
Date of service: 12/26/22 Time of Service: 16:41 DS: Diagnosis Discharge Diagnosis (1) Superior mesenteric vein thrombosis: Status: Acute (2) Dehydration: Status: Acute (3) Nausea & vomiting: Status: Resolved (4) Headache, classical migraine: Status: Acute (5) Anxiety disorder: Status: Chronic (6) Tobacco abuse: Status: Acute (7) Constipation: Status: Acute (8) Hypokalemia: Status: Acute Discharge Plan Disposition Patient Disposition: Home Condition: Improving Discharge Details Reason For Visit: Superior Mesenteric vein thrombosis Admit Date/Time: 12/24/22 17:11 Admit Provider: Tran Coulter Attending Provider: Tran Coulter Primary Care Provider: None,None Hospital Course Hospital Course: Ms Quach is a 37 year old female with PMHx of anxiety d/o and tobacco abuse who was admitted to [facility] hospitalist service on 12/24/22 with a superior mesenteric vein thrombosis, having presented with acute onset of diffuse abdominal pain, nausea, and billious emesis. The patient's CT findings were reviewed with [facility] vascular surgery, who recommended anticoagulation, IVF, a clear liquid diet, a consultation with GI and with hematology. The patient was started on therapeutic enoxaparin. For pain control, she received IV dilaudid and tylenol. She was evaluated by general surgery here who followed her during her hospitalization. [facility] GI recommended workup for hypercoagulable states as well as outpatient malignancy workup and a consultation with hematology, who concurred. The patient is being discharged home today on apixaban with follow up with [facility] vascular surgery, hematology (thrombophilia clinic), and GI. Because she is going to require a malignancy workup, colonoscopy could be done either at [facility] by GI or by [facility] general surgery, to whom she is also being referred. Thrombophilia workup will be done as outpatient with hematology. On day of discharge, the patient developed a severe headache with migrainous features (photophobia, phonophobia). She had a negative CT of the head. She had not been drinking coffee for several days and has not slept well. Her headache improved throughout the day with tylenol and oxycodone. She is being discharged home with a small supply of oxycodone and a bowel regimen, as she reports no BM since admission. She feels comfortable going home with the headache. She is tolerating a regular diet. Her apixaban is covered by her insurance as verified by care management. She should have labs done on 12/30/22. Her potassium here did require repletion and this is being prescribed on discharge. Care for patient as well as completion of her discharge paperwork on day of discharge took 45 minutes. Home Meds and New Rx's Prescriptions: New apixaban 5 mg tablet See Rx Instructions .ROUTE .COMPLEX Qty: 74 0RF Rx Instructions: 10 mg PO BID x 7 days, then 5 mg PO BID oxycodone 5 mg tablet 5 mg PO Q8H PRNQty: 15 0RF potassium chloride 20 mEq tablet extended release 20 meq PO DAILY Qty: 7 0RF docusate sodium [Colace] 100 mg capsule 100 mg PO BID Qty: 30 0RF Rx Instructions: Can stop once BMs are regular and no longer on opioid therapy polyethylene glycol 3350 [Miralax] 17 gram/dose powder 17 g PO DAILY Qty: 119 0RF Rx Instructions: Can stop once BMs are regular and no longer on opioid therapy Continued escitalopram oxalate [Lexapro] 10 mg Tablet 10 mg PO DAILY multivitamin Tablet 1 tab PO DAILY diazepam 5 mg tablet 2.5 mg PO HS PRN PRN Discharge Instructions Instructions: Oxycodone, Rapid Release (By mouth), Apixaban (By mouth) Additional Instructions: Return to the hospital with any fever, bleeding, chest pain, or shortness of breath. While taking opioids, you should also take stool softeners and miralax to prevent constipation. Your potassium was low during this admission and should be followed up with blood work on 12/30/22. Follow up with your PCP in 1-2 weeks. Follow up with [facility] Vascular surgery, hematology, GI. Follow up with [facility] general surgery if you have difficulty getting in with GI. Stand Alone Forms: Nursing Discharge Form Referrals: GASTROENTEROLOGY,[facility] [OTHER] - (Referral sent) HEMATOLOGY/ONC,[facility] [OTHER] - (Referral sent) VASCULARSUG,[facility] [OTHER] - (Referral Sent ) Mat Nelson MD [ [facility] STAFF PHYSICIAN] - (Call Thursday to make a follow up appointment) Activity:: Activity as Tolerated Equipment/Supplies:: No Equipment Needed Diet:: As Tolerated Discharge Orders Discharge Orders: Discharge Order (Routine); Ordered 12/26/22 Ordered By: Tran Coulter Other Ambulatory Orders: Basic Metabolic Panel (Routine) Timeframe: 20221230 Facility: [facility] - Location: Laboratory Outpatient - [facility] Ordered By: Tran Coulter Complete Blood Count w/Diff (Routine) Timeframe: 20221230 Facility: [facility] - Location: Laboratory Outpatient - [facility] Ordered By: Tran Coulter DS: Summary Time Spent with Patient providing and/or coordinating discharge services: Greater than 30 minutes Status at Discharge Functional status at discharge: independent ambulation Overall status at discharge: patient is progressing back to baseline Mental Status: mental status grossly normal Speech and Movement: speech and movement normal Mood: congruent mood Affect: normal affect Exam Narrative Exam Narrative: General: Pleasant female who is sitting in a dark room, A&Ox3, appears more comfortable today HEENT: EOMI, MMM Cardiovascular: RRR, no m/r/g Lungs: CTAB Gastrointestinal: soft, tender in epigastrium and RLQ Extremities: no edema BLEs, 2+ pedal pulses B Psych Mental Status: mental status grossly normal Speech and Movement: speech and movement normal Mood: congruent mood Affect: normal affect DS: Data Vitals/I&O Vitals and I&O: Vital Signs Temperature 37.6 C H 12/26/22 15:37 Temperature Source Tympanic 12/26/22 15:37 Pulse 77 12/26/22 15:37 Pulse Rhythm Regular 12/26/22 07:41 Pulse 85 12/24/22 17:45 Respiratory Rate 16 12/26/22 15:37 Respiratory Effort Normal 12/26/22 07:41 Respiratory Depth Normal 12/26/22 07:41 Respiratory Pattern Normal 12/26/22 07:41 Blood Pressure 108/78 12/26/22 15:37 Blood Pressure Mean 89 12/24/22 17:45 Blood Pressure Position Sitting 12/24/22 11:43 Pulse Oximetry 100 12/26/22 15:37 Oxygen Delivery Method Room Air 12/26/22 15:37 Oxygen Flow Rate 0 12/26/22 15:37 Pain Level 7 12/26/22 15:37 Comment pt asked not to be woken up for vitals , RN notified 12/26/22 03:28 Intake & Output 0812/26/22 12/26/22 23:59 11:59 23:59 Intake Total 19994.167 906.25 / 906.25 Output Total 2099 / 3050 700 / 700 Balance - 904.167 206.25 / 206.25 Weight 79.787 kg Intake: IV 1999 3954.167 906.25 / 906.25 Output: Urine 2100 / 3050 700 / 700 Other: Urine Color Yellow Urine Appearance Clear Clear Urine Odor None Voiding Methods Toilet Toilet Data Completed and Pending Completed studies during hospitalization [Text1]: CT abdomen/pelvis 12/24/22: Superior mesenteric vein thrombosis.? No bowel thickening or pneumatosis.? Significant right lower quadrant mesenteric stranding. CT head w/o contrast 12/26/22: No acute intracranial process. Labs on day of discharge: Labs from last 24 hours 12/26/22 12/26/22 06:50 06:50 WBC 5.10 RBC 3.55 L Hgb 11.8 Hct 34.2 L MCV 96 H MCH 33.2 H MCHC 34.5 RDW 12.5 Plt Count 175 MPV 9.4 Immature Gran % 0.4 Neutrophils % 61.4 Lymphocytes % 29.6 Monocytes % 7.8 Eosinophils % 0.4 Basophils % 0.4 Nucleated RBC % 0.0 Absolute Neutrophils 3.13 Absolute Lymphocytes 1.51 Absolute Monocytes 0.40 Absolute Eosinophils 0.02 Absolute Basophils 0.02 Sodium 140 Potassium 3.3 L Chloride 104 Carbon Dioxide 29.4 Anion Gap 6.6 BUN 5 L Creatinine 0.7 Est GFR (CKD-EPI 2020) 113.46 Glucose 100 Calcium 8.5 Magnesium 2.0 PFSH All Active Problems (Updated 12/26/22 @ 17:02 by Tran Coulter MD) Hypokalemia (Acute) Constipation (Acute) Headache, classical migraine (Acute) Dehydration (Acute) Anxiety disorder (Chronic) Discharge planning issues (Acute) Tobacco abuse (Acute) Superior mesenteric vein thrombosis (Acute) Medical History (Updated 12/26/22 @ 17:02 by Tran Coulter MD) Panic attacks Surgical History (Updated 12/24/22 @ 20:43 by Tran Coulter MD) Family History (Updated 12/24/22 @ 20:43 by Tran Coulter MD) Maternal Grandmother Diabetes Social History Smoking/Tobacco Use Status: Current-Occasional Smoking risk assessment performed?: Yes Alcohol Intake: current Alcohol Intake frequency: a few times a month Housing: apartment Time Spent with Patient Time Spent with Patient: 45-69 minutes Time was spent: preparing to see the patient(eg.review tests), obtaining and/or reviewing separately otained hiistory, ordering medications,tests, procedures, referring, communicating with other health animal care specialist, indepentently interpreting results, counseling the patient and care coordination
== END 2022-12-26 18:21 | disposition home or self-care (01) | DRG 395 ==
LOC: ER 18:11 → MS 12-25 09:36
PROVIDERS: Student in an Organized Health Care Education/Training Program; Admitting Provider Internal Medicine; Emergency Provider Emergency Medicine; Visit Provider Internal Medicine
DX: K55.059 Acute (reversible) ischemia of intestine, part and extent unspecified (principal); E86.0 Dehydration; R11.2 Nausea with vomiting, unspecified; F41.9 Anxiety disorder, unspecified; F17.210 Nicotine dependence, cigarettes, uncomplicated; E87.6 Hypokalemia; G43.109 Migraine with aura, not intractable, without status migrainosus; K59.00 Constipation, unspecified
CPT/HCPCS: 36415; 80048; 80053; 81025; 83690; 87635; 93005; 96361; 96365; 96366; 96372; 96374; 96375; 96376; 99285; 70450; 74177; 83605; 83735; 85025; 93010; 99223; 99233; 99239; J1170; J1650; J2405; J3480; J3490

== ENCOUNTER 2022-12-30 16:19 | Outpatient (CLI) | payer BC, SELFPAY ==
[2022-12-30 14:40] LABS: Abs Immature Grans 0.02 10^3/uL (0.0-0.06); Absolute Basophil Count 0.03 10^3/uL (0.0-0.2); Absolute Eosinophil Count 0.04 10^3/uL (0.0-0.7); Absolute Lymphocyte Count 1.58 10^3/uL (1.2-3.4); Absolute Monocyte Count 0.51 10^3/uL (0.1-0.8); Absolute Neutrophil Count 4.21 10^3/uL (1.2-6.7); Basophils % 0.5; Eosinophils % 0.6; HGB 12.6 g/dL (11.2-15.7); Immature Grans % 0.3; Lymphocytes % 24.7; MCH 32.6 pg (27.0-33.0); MCHC 34.1 % (32.0-36.0); MCV 96 fL (80-95); MPV 9.6 fL (8.0-11.0); Neutrophils % 65.9; Platelet Count 213 10^3/uL (130-400); RBC 3.87 10^6/uL (3.93-5.22); RDW 12.3 % (11.7-14.6); WBC 6.39 10^3/uL (4.4-10.8)
[2022-12-30 17:19] LABS: Anion Gap 6.6 mmol/L (3-11); BUN 14 mg/dL (7-18); CO2 29.4 mmol/L (21.0-32.0); CREATININE 0.9 mg/dL (0.55-1.02); Calcium 9.2 mg/dL (8.5-10.1); Chloride 101 mmol/L (98-107); Estimated GFR 83.92 (mL/min/1.73m2); Glucose 86 mg/dL (74-106); Potassium 4.3 mmol/L (3.5-5.1); Sodium 137 mmol/L (136-145)
== END 2022-12-30 16:20 | disposition home or self-care (01) ==
LOC: LBO 16:19
PROVIDERS: Visit Provider Internal Medicine
DX: K55.069 Acute infarction of intestine, part and extent unspecified (principal); E87.6 Hypokalemia
CPT/HCPCS: 36415; 80048; 85025